=== PATIENT | male | born 1965 | race Caucasian/White ===

== ENCOUNTER 2021-09-10 07:50 | Outpatient (CLI) | payer MEDICARE, SELFPAY ==
--- NOTE | ~2021-09-10 | XR_ITS ---
EXAMINATION: XR barium swallow EXAM DATE: 09/10/2021 08:31 INDICATION: R13.10 - Dysphagia, feels like something is stuck x 2months. TECHNIQUE: Standard thick followed by thin contrast barium esophagram examination was performed by Dr Eren Gonzáles, radiologist. Pulsed dose reduction fluoroscopy was used with fluoroscopic time of 0.7 minutes. The DAP for this procedure was 1.5 Gycm2. A total of 131 images obtained for the exam. T here is no prior study for comparison. FINDINGS: There is mild to moderate presbyesophagus. The pharynx is symmetric and without evidence of mass lesion or mucosal irregularity. There is no esophageal stricture or mass identified. There ar e no esophageal diverticula. Gastroesophageal junction is normal in appearance. Some barium on patie nt's manzo evident on cervical images. IMPRESSION: Mild to moderate presbyesophagus. Otherwise unremarkable exam. Reviewed, dictated and finalized at location A. 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
== END 2021-09-10 07:51 | disposition home or self-care (01) ==
PROVIDERS: PCP Internal Medicine; Visit Provider Otolaryngology
DX: R13.10 Dysphagia, unspecified (principal)
CPT/HCPCS: 74220

== ENCOUNTER 2021-09-26 09:53 | Outpatient (CLI) | payer MEDICARE, SELFPAY | END 2021-09-26 09:54 | disposition home or self-care (01) | PROVIDERS: PCP Internal Medicine; Referring Provider Otolaryngology; Visit Provider Otolaryngology | DX: H93.19 Tinnitus, unspecified ear (principal) | CPT/HCPCS: 92552; 92556; 92567 ==